=== PATIENT | female | born 1990 | race Two or more races ===

== ENCOUNTER 2019-05-27 02:21 | Inpatient (IN) ==
[2019-05-27] MEDS: DEXTROSE 5% LACTATED RINGERS 1,000 ML IV SCH ×2 (05:30→14:56)
[2019-05-27 05:49] LABS: Basophils % 0.3 % (0.0-0.8); Immature Granulocytes % 0.3 %; Immature Granulocytes Absolute 0.03 #; Lymphocytes # 1.7 10*3/uL (1.4-4.0); Lymphocytes % 19.5 % (21.3-54.2); Mean Corpuscular HGB Conc 31.4 GM/DL (32-36); Mean Corpuscular Volume 90.2 FL (87-102); Mean Platelet Volume 10.9 FL (9.6-12.0); Monocytes % 9.3 % (1.7-12.7); NRBC # 0.02 10*3/uL; Neutrophils % 70.6 % (38.7-73.9); Platelet Count 166 T/CUMM (130-400); Red Blood Count 3.88 MC/CUMM (3.8-5.5); Red Cell Distribution Width 12.5 % (9.3-17.3); White Blood Count 8.9 T/CUMM (4-12)
[2019-05-27 07:40] LABS: Albumin 2.5 G/DL (3.4-5.0); Bilirubin,Total 0.5 MG/DL (0.2-1.0); Calcium 7.4 MG/DL (8.5-10.1); Osmolality,Calculated 282.1 MOS/KG (273-304); Total Protein 6.5 G/DL (6.4-8.3)
[2019-05-27] MEDS: PANTOPRAZOLE 40 MG VIAL IV SCH (08:15)
[2019-05-27] MEDS: ONDANSETRON 4 MG/2 ML VIAL IV PRN ×2 (08:16→19:52)
[2019-05-27] MEDS ORDERED: KETOROLAC 15 MG/1 ML VIAL IV PRN (11:30)
[2019-05-27] MEDS: PIPERACILLIN/TAZOBACTAM 3,375 MG in SODIUM CHLORIDE 0.9% 100 ML IV SCH ×2 (12:20→20:39)
[2019-05-27] MEDS ORDERED: LACTATED RINGERS 1,000 ML IV ONE ×2 (17:06→18:13)
[2019-05-27 17:23] LABS: Basophils % 0.3 % (0.0-0.8); Hematocrit 45.2 VOL% (35.7-47.0); Hemoglobin 14.7 GM/DL (12.0-16.0); Immature Granulocytes % 0.6 %; Immature Granulocytes Absolute 0.06 #; Lymphocytes % 19.5 % (21.3-54.2); Mean Corpuscular HGB Conc 32.5 GM/DL (32-36); Mean Corpuscular Volume 88.6 FL (87-102); Mean Platelet Volume 10.5 FL (9.6-12.0); Monocytes % 7.6 % (1.7-12.7); Platelet Count 213 T/CUMM (130-400); Red Cell Distribution Width 12.5 % (9.3-17.3)
[2019-05-27 17:47] LABS: Calcium 7.5 MG/DL (8.5-10.1); Osmolality,Calculated 288.8 MOS/KG (273-304)
[2019-05-27] MEDS: HYDROmorphone 2 MG/1 ML VIAL IV PRN (19:53)
[2019-05-28] MEDS: HYDROmorphone 2 MG/1 ML VIAL IV PRN ×3 (01:11→21:23)
[2019-05-28] MEDS: PIPERACILLIN/TAZOBACTAM 3,375 MG in SODIUM CHLORIDE 0.9% 100 ML IV SCH ×3 (04:45→21:21)
[2019-05-28] MEDS: DEXTROSE 5% LACTATED RINGERS 1,000 ML IV SCH ×3 (04:48→14:52)
[2019-05-28 05:10] LABS: Basophils % 0.3 % (0.0-0.8); Hematocrit 38.5 VOL% (35.7-47.0); Hemoglobin 12.5 GM/DL (12.0-16.0); Immature Granulocytes % 0.4 %; Immature Granulocytes Absolute 0.04 #; Lymphocytes # 2.8 10*3/uL (1.4-4.0); Lymphocytes % 30.2 % (21.3-54.2); Mean Corpuscular HGB Conc 32.5 GM/DL (32-36); Mean Corpuscular Volume 88.5 FL (87-102); Mean Platelet Volume 10.7 FL (9.6-12.0); Neutrophils % 59.1 % (38.7-73.9); Platelet Count 234 T/CUMM (130-400); Red Blood Count 4.35 MC/CUMM (3.8-5.5); Red Cell Distribution Width 12.6 % (9.3-17.3); White Blood Count 9.1 T/CUMM (4-12)
[2019-05-28 05:22] LABS: Osmolality,Calculated 288.8 MOS/KG (273-304)
[2019-05-28] MEDS: ONDANSETRON 4 MG/2 ML VIAL IV PRN ×3 (05:27→21:21)
[2019-05-28] MEDS: KETOROLAC 30 MG/1 ML VIAL IV PRN (10:32)
[2019-05-28] MEDS: PANTOPRAZOLE 40 MG VIAL IV SCH (10:32)
[2019-05-29] MEDS: KETOROLAC 30 MG/1 ML VIAL IV PRN ×2 (01:32→13:31)
[2019-05-29] MEDS: DEXTROSE 5% LACTATED RINGERS 1,000 ML IV SCH ×4 (04:20→23:52)
[2019-05-29] MEDS: PIPERACILLIN/TAZOBACTAM 3,375 MG in SODIUM CHLORIDE 0.9% 100 ML IV SCH ×3 (04:21→20:36)
[2019-05-29 04:32] LABS: Basophils % 0.5 % (0.0-0.8); Hematocrit 36.2 VOL% (35.7-47.0); Hemoglobin 11.7 GM/DL (12.0-16.0); Immature Granulocytes % 0.3 %; Immature Granulocytes Absolute 0.02 #; Lymphocytes # 2.3 10*3/uL (1.4-4.0); Lymphocytes % 36.7 % (21.3-54.2); Mean Corpuscular HGB Conc 32.3 GM/DL (32-36); Mean Corpuscular Volume 88.3 FL (87-102); Mean Platelet Volume 10.7 FL (9.6-12.0); Monocytes % 13.3 % (1.7-12.7); Neutrophils % 49.2 % (38.7-73.9); Platelet Count 216 T/CUMM (130-400); Red Cell Distribution Width 12.7 % (9.3-17.3); White Blood Count 6.3 T/CUMM (4-12)
[2019-05-29 05:10] LABS: Calcium 7.4 MG/DL (8.5-10.1); Osmolality,Calculated 292.3 MOS/KG (273-304)
[2019-05-29] MEDS: ONDANSETRON 4 MG/2 ML VIAL IV PRN ×2 (05:29→13:34)
[2019-05-29] MEDS: HYDROmorphone 2 MG/1 ML VIAL IV PRN ×3 (05:29→23:55)
[2019-05-29] MEDS: PANTOPRAZOLE 40 MG VIAL IV SCH (09:52)
[2019-05-29 11:18] LABS: Basophils % 0.3 % (0.0-0.8); Hematocrit 38.3 VOL% (35.7-47.0); Hemoglobin 12.3 GM/DL (12.0-16.0); Immature Granulocytes % 0.3 %; Immature Granulocytes Absolute 0.02 #; Lymphocytes # 2.1 10*3/uL (1.4-4.0); Mean Corpuscular HGB Conc 32.1 GM/DL (32-36); Mean Corpuscular Volume 88.7 FL (87-102); Mean Platelet Volume 10.9 FL (9.6-12.0); Monocytes % 12.2 % (1.7-12.7); Neutrophils % 58.2 % (38.7-73.9); Platelet Count 231 T/CUMM (130-400); Red Blood Count 4.32 MC/CUMM (3.8-5.5); Red Cell Distribution Width 12.8 % (9.3-17.3); White Blood Count 7.2 T/CUMM (4-12)
[2019-05-29 22:12] LABS: RBC,Peritoneal Fluid 190 T/CUMM
[2019-05-29 22:15] LABS: Neutrophils,Peritoneal Fluid 23 %
[2019-05-30] MEDS: PIPERACILLIN/TAZOBACTAM 3,375 MG in SODIUM CHLORIDE 0.9% 100 ML IV SCH ×3 (04:15→20:27)
[2019-05-30] MEDS: HYDROmorphone 2 MG/1 ML VIAL IV PRN ×3 (04:20→20:37)
[2019-05-30] MEDS: ONDANSETRON 4 MG/2 ML VIAL IV PRN ×2 (09:33→14:54)
[2019-05-30] MEDS: DEXTROSE 5% LACTATED RINGERS 1,000 ML IV SCH ×2 (09:33→17:33)
[2019-05-30] MEDS: PANTOPRAZOLE 40 MG VIAL IV SCH (09:34)
[2019-05-30] MEDS: KETOROLAC 30 MG/1 ML VIAL IV PRN (15:41)
[2019-05-31] MEDS: ONDANSETRON 4 MG/2 ML VIAL IV PRN ×4 (00:58→19:23)
[2019-05-31] MEDS: DEXTROSE 5% LACTATED RINGERS 1,000 ML IV SCH ×3 (00:58→16:41)
[2019-05-31] MEDS: HYDROmorphone 2 MG/1 ML VIAL IV PRN ×6 (00:58→23:57)
[2019-05-31] MEDS: PIPERACILLIN/TAZOBACTAM 3,375 MG in SODIUM CHLORIDE 0.9% 100 ML IV SCH ×3 (03:49→20:00)
[2019-05-31 04:40] LABS: Basophils % 0.2 % (0.0-0.8); Hematocrit 27.2 VOL% (35.7-47.0); Hemoglobin 8.5 GM/DL (12.0-16.0); Immature Granulocytes % 0.2 %; Immature Granulocytes Absolute 0.01 #; Lymphocytes # 2.1 10*3/uL (1.4-4.0); Lymphocytes % 46.7 % (21.3-54.2); Mean Corpuscular HGB Conc 31.3 GM/DL (32-36); Mean Corpuscular Volume 90.1 FL (87-102); Mean Platelet Volume 10.2 FL (9.6-12.0); Monocytes % 10.3 % (1.7-12.7); Neutrophils % 42.6 % (38.7-73.9); Platelet Count 193 T/CUMM (130-400); Red Blood Count 3.02 MC/CUMM (3.8-5.5); Red Cell Distribution Width 12.8 % (9.3-17.3); White Blood Count 4.5 T/CUMM (4-12)
[2019-05-31 05:12] LABS: Hypochromasia 1+; Lymphocytes 38 % (20-55); Ovalocytes Slight; Platelet Estimate Adequate; Segmented Neutrophils 48 % (50-85); Total Cells Counted 100
[2019-05-31 05:20] LABS: Calcium 7.2 MG/DL (8.5-10.1); Osmolality,Calculated 291.7 MOS/KG (273-304)
[2019-05-31] MEDS: PANTOPRAZOLE 40 MG VIAL IV SCH (08:02)
[2019-05-31] MEDS: POTASSIUM CHLORIDE RIDER 10 MEQ in PREMIX 1 EACH IV PRN ×7 (09:31→23:57)
[2019-05-31] MEDS ORDERED: POTASSIUM CHLORIDE 20 MEQ TABLET PO PRN (09:47)
[2019-05-31 12:54] LABS: Hematocrit 28.4 VOL% (35.7-47.0); Hemoglobin 9.1 GM/DL (12.0-16.0); Platelet Count 203 T/CUMM (130-400)
[2019-05-31 13:02] LABS: INR 1.5; PT Patient Result 16.1 SECS (9.6-12.2); Partial Thromboplastin Time 34.6 SECS (20.8-36.0)
[2019-05-31] MEDS: metroNIDAZOLE INJ 500 MG in PREMIX 1 EACH IV SCH (16:39)
[2019-06-01] MEDS: metroNIDAZOLE INJ 500 MG in PREMIX 1 EACH IV SCH ×4 (00:25→23:21)
[2019-06-01] MEDS: DEXTROSE 5% LACTATED RINGERS 1,000 ML IV SCH ×4 (00:26→23:22)
[2019-06-01] MEDS: POTASSIUM CHLORIDE RIDER 10 MEQ in PREMIX 1 EACH IV PRN ×7 (01:28→23:21)
[2019-06-01] MEDS: KETOROLAC 30 MG/1 ML VIAL IV PRN ×3 (02:32→19:39)
[2019-06-01] MEDS: ONDANSETRON 4 MG/2 ML VIAL IV PRN ×5 (02:32→23:22)
[2019-06-01] MEDS: PIPERACILLIN/TAZOBACTAM 3,375 MG in SODIUM CHLORIDE 0.9% 100 ML IV SCH ×3 (03:30→19:38)
[2019-06-01 05:52] LABS: Basophils % 0.2 % (0.0-0.8); Eosinophils % 0.4 % (0.00-10.9); Hematocrit 31.7 VOL% (35.7-47.0); Hemoglobin 10.1 GM/DL (12.0-16.0); Immature Granulocytes % 0.2 %; Immature Granulocytes Absolute 0.01 #; Lymphocytes # 1.8 10*3/uL (1.4-4.0); Lymphocytes % 38.8 % (21.3-54.2); Mean Corpuscular HGB Conc 31.9 GM/DL (32-36); Mean Corpuscular Volume 90.6 FL (87-102); Mean Platelet Volume 9.6 FL (9.6-12.0); Monocytes % 8.9 % (1.7-12.7); Neutrophils % 51.5 % (38.7-73.9); Platelet Count 258 T/CUMM (130-400); Red Cell Distribution Width 12.9 % (9.3-17.3); White Blood Count 4.7 T/CUMM (4-12)
[2019-06-01 06:10] LABS: Alanine Aminotransferase 11 U/L (13-56); Albumin 1.8 G/DL (3.4-5.0); Alkaline Phosphatase 70 U/L (45-117); Aspartate Amino Transferase 24 U/L (0-37); Bilirubin,Total < 0.39 MG/DL (0.2-1.0); Blood Urea Nitrogen 7 MG/DL (7-18); Calcium 7.4 MG/DL (8.5-10.1); Estimated Glom Filtration Rate 102 ML/MIN; Glucose 84 MG/DL (74-106); Osmolality,Calculated 275.4 MOS/KG (273-304); Total Protein 5.1 G/DL (6.4-8.3)
[2019-06-01] MEDS ORDERED: LACTATED RINGERS 1,000 ML IV SCH (08:00)
[2019-06-01] MEDS: PANTOPRAZOLE 40 MG VIAL IV SCH (08:39)
[2019-06-01] MEDS ORDERED: LIDOCAINE 2% 5 ML VIAL ONE (09:00)
[2019-06-01] MEDS ORDERED: PROPOFOL 200 MG/20 ML VIAL IV ONE (09:00)
[2019-06-01] MEDS ORDERED: INFLUENZA VIRUS VACCINE 0.5 ML SYRINGE IM ONE (10:56)
[2019-06-01] MEDS ORDERED: ONDANSETRON 4 MG/2 ML VIAL ONE (11:29)
[2019-06-02] MEDS: PIPERACILLIN/TAZOBACTAM 3,375 MG in SODIUM CHLORIDE 0.9% 100 ML IV SCH ×3 (04:42→20:10)
[2019-06-02 04:49] LABS: Basophils % 0.4 % (0.0-0.8); Eosinophils # 0.1 10*3/uL (0.0-0.87); Eosinophils % 0.9 % (0.00-10.9); Hematocrit 28.7 VOL% (35.7-47.0); Hemoglobin 9.1 GM/DL (12.0-16.0); Immature Granulocytes % 0.2 %; Immature Granulocytes Absolute 0.01 #; Lymphocytes # 1.6 10*3/uL (1.4-4.0); Lymphocytes % 29.9 % (21.3-54.2); Mean Corpuscular HGB Conc 31.7 GM/DL (32-36); Mean Corpuscular Volume 89.1 FL (87-102); Mean Platelet Volume 10.1 FL (9.6-12.0); Monocytes % 10.1 % (1.7-12.7); Neutrophils % 58.5 % (38.7-73.9); Platelet Count 279 T/CUMM (130-400); Red Blood Count 3.22 MC/CUMM (3.8-5.5); Red Cell Distribution Width 12.9 % (9.3-17.3); White Blood Count 5.4 T/CUMM (4-12)
[2019-06-02 05:08] LABS: Calcium 7.6 MG/DL (8.5-10.1); Osmolality,Calculated 278.1 MOS/KG (273-304)
[2019-06-02] MEDS: POTASSIUM CHLORIDE RIDER 10 MEQ in PREMIX 1 EACH IV PRN ×3 (05:25→11:36)
[2019-06-02] MEDS: DEXTROSE 5% LACTATED RINGERS 1,000 ML IV SCH ×3 (05:26→19:15)
[2019-06-02] MEDS: KETOROLAC 30 MG/1 ML VIAL IV PRN (06:47)
[2019-06-02] MEDS: metroNIDAZOLE INJ 500 MG in PREMIX 1 EACH IV SCH ×2 (08:53→16:09)
[2019-06-02] MEDS: PANTOPRAZOLE 40 MG VIAL IV SCH (08:54)
[2019-06-02] MEDS ORDERED: MAGNESIUM SULF RIDER 4 GM in PREMIX 1 EACH IV PRN (10:23)
[2019-06-02] MEDS: MAGNESIUM SULF RIDER 2 GM in PREMIX 1 EACH IV PRN (11:15)
[2019-06-03] MEDS: metroNIDAZOLE INJ 500 MG in PREMIX 1 EACH IV SCH ×2 (00:12→07:50)
[2019-06-03] MEDS: DEXTROSE 5% LACTATED RINGERS 1,000 ML IV SCH (00:12)
[2019-06-03] MEDS: PIPERACILLIN/TAZOBACTAM 3,375 MG in SODIUM CHLORIDE 0.9% 100 ML IV SCH (03:49)
[2019-06-03 08:15] VITALS: BP 115/78
[2019-06-03] MEDS: PANTOPRAZOLE 40 MG VIAL IV SCH (09:04)
[2019-06-03] MEDS: MAGNESIUM SULF RIDER 2 GM in PREMIX 1 EACH IV PRN (09:04)
[2019-06-03] MEDS ORDERED: CIPROFLOXACIN 500 MG TABLET PO SCH (10:30)
[2019-06-03] MEDS ORDERED: metroNIDAZOLE 500 MG TABLET PO SCH (15:00)
[2019-06-05 11:43] LABS: Anti-Nuclear Antibody Pattern HOMOGENEOUS
[2019-06-05 12:00] LABS: Anti SS-A Antibodies > 100 EU/ML
[2019-06-06 10:24] LABS: Double Stranded DNA Antibodies 137.9 IU/ML
== END 2019-06-03 12:15 | disposition home or self-care (01) | DRG 392 ==
LOC: N.EDINP 02:21 → N.ED 02:21 → N.3E 04:38
PROVIDERS: ADMIT Surgery; ATTEND Surgery

== ENCOUNTER 2020-10-16 14:02 | Inpatient (IN) ==
[2020-10-16 14:48] LABS: Basophils % 0.2 % (0.0-0.8); Eosinophils # 0.2 10*3/uL (0.0-0.87); Eosinophils % 3.3 % (0.00-10.9); Hemoglobin 7.6 GM/DL (12.0-16.0); Immature Granulocytes % 0.2 %; Immature Granulocytes Absolute 0.01 #; Lymphocytes # 2.2 10*3/uL (1.4-4.0); Mean Corpuscular HGB Conc 30.4 GM/DL (32-36); Mean Corpuscular Volume 72.5 FL (87-102); Mean Platelet Volume 9.2 FL (9.6-12.0); Monocytes % 7.3 % (1.7-12.7); Platelet Count 473 T/CUMM (130-400); Red Blood Count 3.45 MC/CUMM (3.8-5.5); Red Cell Distribution Width 14.8 % (9.3-17.3); White Blood Count 5.7 T/CUMM (4-12)
[2020-10-16 15:02] LABS: INR 1.1; PT Patient Result 11.6 SECS (9.8-11.9); Partial Thromboplastin Time 37.3 SECS (23.9-33.8)
[2020-10-16 15:08] LABS: Alanine Aminotransferase 15 U/L (13-56); Albumin 2.4 G/DL (3.4-5.0); Alkaline Phosphatase 117 U/L (45-117); Aspartate Amino Transferase 18 U/L (0-37); Bilirubin,Total < 0.39 MG/DL (0.2-1.0); Blood Urea Nitrogen 18 MG/DL (7-18); Calcium 8.3 MG/DL (8.5-10.1); Carbon Dioxide 24 MMOL/L (21-32); Estimated Glom Filtration Rate 97 ML/MIN; Glucose 89 MG/DL (74-106); Osmolality,Calculated 275.7 MOS/KG (273-304); Sodium 138 MMOL/L (136-145); Total Protein 8.1 G/DL (6.4-8.3)
[2020-10-16 16:05] LABS: Ferritin 197.5 ng/ml (8-252)
[2020-10-16 16:06] LABS: Folate 9.5 NG/ML (5.38-24.0)
[2020-10-16] MEDS ORDERED: DEXTROSE 50% 25 GM/50 ML VIAL IV PRN (18:01)
[2020-10-16] MEDS ORDERED: GLUCAGON 1 MG VIAL IM PRN (18:01)
[2020-10-16] MEDS ORDERED: ACETAMINOPHEN 325 MG TABLET PO PRN (18:01)
[2020-10-16] MEDS ORDERED: ONDANSETRON 4 MG/2 ML VIAL IV PRN (18:01)
[2020-10-16] MEDS ORDERED: SODIUM CHLORIDE 0.9% 1,000 ML IV PRN ×2 (18:16→21:23)
[2020-10-16 18:24] LABS: Bilirubin,Urine Negative (Negative); Blood, Urine Negative (Negative); Glucose,Urine (UA) Negative (Negative); Ketones,Urine Negative (Negative); Mucus,Urine Occasional /LPF (Occasional); Nitrite,Urine Negative (Negative); Protein,Urine Negative; RBC,Urine 1 /HPF (0-4); Squamous Epithelial Cell,Urine Occasional /HPF (0-10); Urine Appearance CLEAR (Clear); Urine Color Straw (Yellow); Urine Specific Gravity 1.009 (1.001-1.035); Urine Urobilinogen < 2.0 EU/DL (0.2-1.0); WBC,Urine 2 /HPF (0-6)
[2020-10-16 18:27] LABS: Barbiturates Screen,Urine Negative (Negative); Benzodiazepines Screen,Urine Negative (Negative); Cannabinoid Screen,Urine Negative (Negative); Opiate Screen,Urine Negative (Negative); Phencyclidine Screen,Urine Negative (Negative)
[2020-10-16 18:52] LABS: Hematocrit 23.5 VOL% (35.7-47.0)
[2020-10-16 18:53] LABS: Risk Ratio 2.23; Thyroid Stimulating Hormone 3.87 uIU/ml (0.358-3.74); VLDL CHOLESTEROL 15.8 MG/DL
[2020-10-16 19:37] LABS: Cyclic Citrull Peptide Interp Positive
[2020-10-16] MEDS: buPROPion SR 100 MG TABLET PO SCH (20:54)
[2020-10-16] MEDS: PANTOPRAZOLE 40 MG VIAL IV SCH (20:56)
[2020-10-16] MEDS: LACTATED RINGERS 1,000 ML IV SCH (20:56)
[2020-10-17 01:11] LABS: Calcium 7.9 MG/DL (8.5-10.1); Osmolality,Calculated 277.5 MOS/KG (273-304); Potassium 3.7 MMOL/L (3.5-5.1)
[2020-10-17 01:20] LABS: Hematocrit 25.8 VOL% (35.7-47.0)
[2020-10-17] MEDS: LACTATED RINGERS 1,000 ML IV SCH ×5 (02:30→21:40)
[2020-10-17 05:01] LABS: Basophils % 0.2 % (0.0-0.8); Eosinophils # 0.1 10*3/uL (0.0-0.87); Eosinophils % 2.8 % (0.00-10.9); Hematocrit 26.4 VOL% (35.7-47.0); Immature Granulocytes % 0.2 %; Immature Granulocytes Absolute 0.01 #; Lymphocytes # 2.2 10*3/uL (1.4-4.0); Lymphocytes % 42.9 % (21.3-54.2); Mean Corpuscular HGB Conc 30.3 GM/DL (32-36); Mean Corpuscular Volume 76.5 FL (87-102); Mean Platelet Volume 9.1 FL (9.6-12.0); Monocytes % 8.3 % (1.7-12.7); Neutrophils % 45.6 % (38.7-73.9); Platelet Count 390 T/CUMM (130-400); Red Blood Count 3.45 MC/CUMM (3.8-5.5); Red Cell Distribution Width 17.1 % (9.3-17.3)
[2020-10-17] MEDS: LEVOTHYROXINE 25 MCG TABLET PO SCH (06:11)
[2020-10-17 06:41] LABS: Eosinophils 4 % (0-10); Lymphocytes 41 % (20-55); Metamyelocytes 1 %; Segmented Neutrophils 47 % (50-85); Total Cells Counted 100
[2020-10-17 06:42] LABS: Hypochromasia 2+; Microcytosis 1+
[2020-10-17 06:43] LABS: Ovalocytes Slight
[2020-10-17 06:44] LABS: Platelet Estimate Normal
[2020-10-17] MEDS: PANTOPRAZOLE 40 MG VIAL IV SCH ×2 (08:56→20:28)
[2020-10-17] MEDS: CETIRIZINE 10 MG TABLET PO SCH (08:56)
[2020-10-17] MEDS: buPROPion SR 100 MG TABLET PO SCH ×2 (08:56→20:25)
[2020-10-17] MEDS ORDERED: PANTOPRAZOLE 40 MG TABLET PO SCH (09:00)
[2020-10-17] MEDS ORDERED: predniSONE 20 MG TABLET PO SCH (09:00)
[2020-10-17] MEDS ORDERED: BISACODYL 5 MG TABLET PO ONE (12:00)
[2020-10-17] MEDS: methylPREDNISolone SOD SUC 40 MG/1 ML VIAL IV SCH (15:05)
[2020-10-17] MEDS ORDERED: POLYETHYLENE GLYCOL POWDER 255 GM BOTTLE PO ONE (18:00)
[2020-10-17] MEDS: HYDROXYCHLOROQUINE 200 MG TABLET PO SCH (20:25)
[2020-10-17] MEDS: FERROUS SULFATE 325 MG TABLET PO SCH (20:26)
[2020-10-18] MEDS: LACTATED RINGERS 1,000 ML IV SCH ×2 (02:30→09:30)
[2020-10-18 05:27] LABS: Hematocrit 26.7 VOL% (35.7-47.0); Immature Granulocytes % 0.3 %; Immature Granulocytes Absolute 0.02 #; Lymphocytes % 28.6 % (21.3-54.2); Mean Corpuscular Volume 76.3 FL (87-102); Mean Platelet Volume 9.2 FL (9.6-12.0); Monocytes % 8.5 % (1.7-12.7); Neutrophils % 62.6 % (38.7-73.9); Platelet Count 401 T/CUMM (130-400); Red Cell Distribution Width 16.8 % (9.3-17.3); White Blood Count 7.1 T/CUMM (4-12)
[2020-10-18 05:43] LABS: INR 1.1; PT Patient Result 11.9 SECS (9.8-11.9)
[2020-10-18 05:47] LABS: Calcium 8.3 MG/DL (8.5-10.1); Osmolality,Calculated 277.5 MOS/KG (273-304); Potassium 3.7 MMOL/L (3.5-5.1)
[2020-10-18] MEDS ORDERED: LACTATED RINGERS 1,000 ML IV SCH (08:00)
[2020-10-18] MEDS: LEVOTHYROXINE 25 MCG TABLET PO SCH (08:13)
[2020-10-18] MEDS: CETIRIZINE 10 MG TABLET PO SCH (08:13)
[2020-10-18] MEDS: buPROPion SR 100 MG TABLET PO SCH (08:13)
[2020-10-18] MEDS: methylPREDNISolone SOD SUC 40 MG/1 ML VIAL IV SCH (08:13)
[2020-10-18] MEDS: HYDROXYCHLOROQUINE 200 MG TABLET PO SCH (08:13)
[2020-10-18] MEDS: FERROUS SULFATE 325 MG TABLET PO SCH (08:13)
[2020-10-18] MEDS: PANTOPRAZOLE 40 MG VIAL IV SCH (08:14)
[2020-10-18] MEDS ORDERED: propofoL 200 MG/20 ML VIAL IV ONE ×2 (12:38→12:44)
[2020-10-18] MEDS ORDERED: LIDOCAINE 2% 5 ML VIAL ONE (12:38)
[2020-10-18 13:42] VITALS: BP 112/70
[2020-10-21 12:30] LABS: Anti-Nuclear Antibody Pattern HOMOGENEOUS
[2020-10-21 12:55] LABS: Anti SS-A Antibodies > 100 EU/ML
[2020-10-23 04:50] LABS: Double Stranded DNA Antibodies > 200.0 IU/ML
== END 2020-10-18 15:12 | disposition home or self-care (01) | DRG 378 ==
LOC: N.ED 14:02 → SUATTDRO 17:59 → N.5E 17:59
PROVIDERS: ADMIT Phlebology; ATTEND Internal Medicine